=== PATIENT | male | born 1955 | race Caucasian/White ===

== ENCOUNTER → 2025-04-14 | Day surgery (SDC) | payer MEDICARE, BC ==
[~2025-04-14] VITALS: Ht 167.6 cm; Wt 62.0 kg
[~2025-04-14] MED LIST: COQ-10100 MG PO; CRESTOR40 MG PO; HYDROCHLOROTHIA25 MG PO; IBLOOD GLUCOSE TEST STRIP 1 EA TEST VI PRN; LACTATED RINGER'S 1,000 ML IV SCH; LIDOCAINE HCL 1% 5 ML SDV INJ ONE; LIDOCAINE HCL 2% 5 ML SDV ONE; MIDAZOLAM HCL 5 MG/5 ML VIAL IV PRN; VAZALORE81 MG PO; ZESTRIL40 MG PO; fentaNYL citrate 100 MCG/2 ML VIAL IV PRN; fentaNYL citrate 100 MCG/2 ML VIAL ONE
[2025-04-14 10:22] VITALS: BP 133/71
[2025-04-14 10:58] LABS: BASOPHILS 0.9 % (0.2-1.2); BASOPHILS, ABSOLUTE 0.08 K/uL (0.01-0.08); EOSINOPHILS 1.2 % (0.8-7.0); EOSINOPHILS, ABSOLUTE 0.10 K/uL (0.04-0.54); LYMPHOCYTES 13.3 % (21.8-53.1); MCH 33.0 PG (25.7-32.2); MCHC 35.2 g/dL (32.3-36.5); MCV 93.7 fL (79.0-92.2); MONOCYTES 8.1 % (5.3-12.2); MONOCYTES, ABSOLUTE 0.70 K/uL (0.30-0.82); NEUTROPHILS 76.0 % (34.0-67.9); NEUTROPHILS, ABSOLUTE 6.58 K/uL (1.78-5.38); RBC 3.79 M/uL (4.63-6.08); RETIC, PERCENT 1.93 % (0.51-1.81)
[2025-04-14 12:10] LABS: ERYTHROCYTE SEDIMENTATION RATE 29
--- NOTE | 2025-04-14 12:22 | NUR ---
04/14/25 1222 Keren Reyes 1215: BONE MARROW BX IS COMPLETE. THIS RN TAKES OVER FOR RECOVERY. PT IS ROLLED ONTO HIS BACK. 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
[2025-04-14 12:37] VITALS: BP 121/58
[2025-04-15 16:26] LABS: TESTOSTERONE BY IMMUNOASSAY 266 ng/dL (300-720)
[2025-04-17 19:34] LABS: ALPHA 1 GLOBULIN 0.26 g/dL (0.19-0.46); ALPHA 2 GLOBULIN 0.73 g/dL (0.48-1.05); BETA GLOBULIN 0.94 g/dL (0.48-1.10); GAMMA 0.81 g/dL (0.62-1.51); IMMUNOFIXATION REFLEX IFE Done (())
--- NOTE | 2025-04-19 15:00 | PATH ---
[facility] [address] [place], [place] [address] Signed SPECIMEN(S): A BONE MARROW - CORE, LEFT SPECIMEN(S): B BONE MARROW - ASPIRATION SPECIMEN(S): C FLOW CYTOMETRY, BM EDTA CLINICAL HISTORY: 69-year-old male NC/NC anemia, eval MDS versus myeloma DIAGNOSIS SUMMARY: Peripheral smear, review: - Normocytic normochromic anemia. - Mild absolute neutrophilia. Bone marrow core, clot with cell block, aspirate, touch preparation, biopsy: - Normocellular bone marrow (30%) with trilineage hematopoiesis. - No increase blasts or dysplasia. - Small polytypic plasma cell population. - Iron: Iron storage appears decreased. No ring sideroblasts identified. - Reticulin: Mild reticulin fibrosis, MF grade 1 of 3. - See diagnostic comment. DIAGNOSTIC COMMENT: In summary, the peripheral smear shows a mild normocytic, normochromic anemia and mild absolute neutrophilia. An occasional mildly hypogranular neutrophil is identified. No definitive dysplasia or increased blasts are identified. The bone marrow is normocellular with appropriate trilineage hematopoiesis. No increased blasts or definitive dysplasia are identified. No evidence of a plasma cell neoplasm are identified. Overall, the changes in the bone marrow are favored to be reactive in origin. However, to further rule out a myeloid neoplasm such as myelodysplastic syndrome (MDS) and a plasma cell neoplasm, additional studies (cytogenetics, MDS and multiple myeloma FISH analysis, and cliniq.ly MDS/CMML NGS profile) will be performed and added as an addendum when available. PERIPHERAL BLOOD: HEMOGRAM ([facility] 04/14/2025): WBC 8.65 K/uL, RBC 3.79 M/uL, HGB 12.5 g/dL, HCT 35.5%, MCV 93.7 fL, MCH 33.0 pg, MCHC 35.2 g/dL, RDW 12.9%, PLT 191 K/uL. DIFFERENTIAL: ABSOLUTE: Neutrophils 6.58, lymphocytes 1.15, monocytes 0.70, eosinophils 0.10, basophils 0.08. PERCENTAGES: Neutrophils 76.0%, lymphocytes 13.3%, monocytes 8.1%, eosinophils PATIENT NAME: TAIWO PABLO PATHOLOGY DATE OF : 57 REPORT #: [id number] PHYSICIAN: MANE PATHOLOGY PCP: NO PRIMARY CARE PHYSICIAN REPORT IS CONFIDENTIAL AND NOT TO BE RELEASED WITHOUT AUTHORIZATION [facility] [address] [place], [place] [address] Signed 1.2%, and basophils 0.9%. The peripheral smear shows a normocytic, normochromic anemia. There are scattered reticulocytes. Anisopoikilocytosis is minimal with occasional ovalocytes. There are no increased schistocytes. Platelets are normal in number and morphology. Neutrophils are slightly increased. No definitive dysplasia is identified. There are occasional mildly hypogranular forms. The lymphocytes present are predominantly small in size with condensed chromatin and scant cytoplasm. No increased blasts are identified. RAYMUNDO:cyn BONE MARROW: BONE MARROW ASPIRATE AND TOUCH PREP: The aspirate and touch imprint smear are suboptimal for evaluation. Rare spicules are present. The erythroid and myeloid elements are adequate in number and show normal maturation without dysplasia. Blasts are not increased. There is no abnormal lymphoid or plasma cell infiltrate. Megakaryocytes are rare. Due to the lack of cellularity on the aspirate, definitive evaluation of dysplasia is limited. BONE MARROW DIFFERENTIAL: Plasma cells: 1%, eosinophils 1%, lymphocytes 4%, myeloid lineage 84, nucleated red blood cells 10%. BONE MARROW CORE AND CLOT SECTION: The core and clot are adequate specimens. The marrow is normocellular for age with overall average cellularity of approximately 30%. Erythroid and myeloid elements are adequate in number and show normal maturation. M:E ratio is increased. Blasts are not increased. There is no abnormal lymphoid or plasma cell infiltrate. Megakaryocytes are rare. RESULTS - IMMUNOHISTOCEHMISTRY AND SPECIAL STAINS (PERFORMED ON BLOCK A1, UNLESS OTHERWISE SPECIFIED); - Iron (wet smear and clot): Iron storage appears decreased. No ring sideroblasts. - CD138: Highlights plasma cells, approximately 3-5% of total cellularity. - [place]/lambda in-situ hybridization: Highlights polytypic plasma cell population. - Reticulin: Mild reticulin fibrosis, MF grade 1 of 3. - CD34: Highlights blasts, not increased. - CD117: Highlights blasts and mast cells, not increased. - CD71: Highlights erythroid lineage. - Factor VIII: Highlights megakaryocytes. - Myeloperoxidase: Highlights myeloid lineage. JORDANA:cyn PATIENT NAME: TAIWO PABLO PATHOLOGY DATE OF : 57 REPORT #: [id number] PHYSICIAN: MANE PATHOLOGY PCP: NO PRIMARY CARE PHYSICIAN REPORT IS CONFIDENTIAL AND NOT TO BE RELEASED WITHOUT AUTHORIZATION [address] [address] Signed FLOW CYTOMETRY: Bone marrow aspirate, flow cytometry: - No increased blasts - No monoclonal B-cell population or aberrant T-cell population - Polytypic plasma cell population COMMENT: Clinical and morphologic correlation is required. FLOW CYTOMETRY ANALYSIS: FLOW DIFFERENTIAL (% Total CD45 vs. SSC gating): Myeloid 79%; Lymphoid 9%; Monocyte 2%; Dim CD45/Blast 0.9%; Plasma Cells 0.5%. Cell Count: 1.2 x 10*4/uL. POPULATION ANALYSIS: BLASTS: Analysis of the dim CD45 gate demonstrates 0.9% myeloblasts by CD34/CD117. LYMPHOID CELLS: The lymphocyte gate comprises 9% of total events and includes 78% T-cells with a CD4:CD8 ratio of 1.3:1 and normal mcfarlane T-cell antigen expression. 15% of lymphocytes are B-cells with a kappa:lambda ratio of 2.1:1. The remainders are NK cells. MYELOID CELLS: The myeloid population comprises 79% of the total events. No aberrant immature immunophenotypic expression is detected. MONOCYTES: The monocyte population comprises 2.0% of the total events. Monocytes are not increased. No aberrant immunophenotypic expression is detected. PLASMA CELLS: There is a clinical concern for myeloma per the requisition. For this reason, select additional antibodies are run to further characterize the plasma cells. 0.5% polytypic plasma cells are detected (n=233) expressing CD45 DIM-NEG, CD38 BR, CD138 MOD, CD19 MOD (subset neg) and CD56 MOD while negative for CD20, with a ckappa:clambda ratio of 1.3. Initial Antibodies Used: KAPPA, LAMBDA, CD20, CD10, CD19, CD23, CD38, CD16, CD56, CD8, CD5, CD2, CD4, CD7, CD3, CD14, CD33, CD13, HLADR, CD34, CD117, CD15, CD45. Additional Antibodies (necessary for further plasma cell analysis): ckappa, clambda, CD138. Total Antibodies Used: 26. KEW FINAL DIAGNOSIS OF FLOW CYTOMETRY PERFORMED BY: Kenyon Mallory DO, Apr 15 2025 4:20PM CYTOGENETICS: PATIENT NAME: TAIWO PABLO PATHOLOGY DATE OF : 57 REPORT #: [id number] PHYSICIAN: MANE PATHOLOGY PCP: NO PRIMARY CARE PHYSICIAN REPORT IS CONFIDENTIAL AND NOT TO BE RELEASED WITHOUT AUTHORIZATION [facility] [address] [place], [place] [address] Signed Performed, will be added as an addendum when available. FISH ANALYSIS: Performed, will be added as an addendum when available. MOLECULAR / PCR: Performed, will be added as an addendum when available. GROSS DESCRIPTION: Two specimens are received in two containers A. The specimen, labeled and designated "Cirilo, bone marrow-core," is received in formalin and consists of a singular portion of red-tapia bone measuring 1.1 cm in length by up to 0.2 cm in diameter. The specimen is submitted for decalcification in Immunocal prior to processing. Entirely submitted in cassette (A1). B. The specimen, labeled and designated "Cirilo, bone marrow-aspiration," is received in formalin and consists of a singular portion of clotted blood measuring 1.9 x 1.2 x 0.7 cm. The specimen is entirely submitted in cassette (B1). AB (under the direct supervision of a pathologist) The Gross Description was prepared using a voice recognition system. The report was reviewed for accuracy; however, sound-alike word errors, addition and/or deletions may occur. If there is any question about this report, please contact Client Services. ADDITIONAL NOTES: Immunohistochemical and/or in situ hybridization studies if performed in this case included appropriate positive controls that reacted as expected. This test was developed and its performance characteristics determined by [facility]. It has not been cleared or approved by the U.S. Food and Drug Administration. The FDA has determined that such clearance or approval is not necessary. This test is used for clinical purposes. It should not be regarded as investigational or for research. [facility] is certified under the Clinical Laboratory Improvement Amendments of 1988 (CLIA) as qualified to perform high complexity clinical laboratory testing. In this case, certain antibodies were performed by both immunohistochemistry and flow cytometry analysis because flow cytometry analysis did not fully explain all the light microscopic findings. Immunohistochemistry aided in the analysis. Both methods are deemed medically necessary in this case. PATIENT NAME: TAIWO PABLO PATHOLOGY DATE OF : 57 REPORT #: [id number] PHYSICIAN: MANE MONZON PCP: NO PRIMARY CARE PHYSICIAN REPORT IS CONFIDENTIAL AND NOT TO BE RELEASED WITHOUT AUTHORIZATION [facility] [address] [place] [id number] Signed This test was developed and its performance characteristics determined by [facility]. It has not been cleared or approved by the US Food and Drug Administration. The FDA does not require this test to go through premarket FDA review. This test is used for clinical purposes. It should not be regarded as investigational or for research. This laboratory is certified under the Clinical Laboratory Improvement Amendments (CLIA) as qualified to perform high complexity clinical laboratory testing. PERFORMING LABORATORY: The technical component of flow cytometry was performed by [facility], [facility], [facility] [place] [address] (CLIA#:� [id number]). Professional interpretation was performed by [facility], [facility], [address] [place] [id number] (CLIA#: [id number]). Technical component was performed by [facility], [address] [place] [id number] (CLIA# [id number]). [facility], [address] [place] [id number] (CLIA#: [id number]). IMAGES: [id number]: [id number]: [id number] Diagnostician: Kenyon Mallory DO Pathologist Electronically Signed 04/19/2025 Copies: ~ PATIENT NAME: TAIWO PABLO PATHOLOGY DATE OF : 57 REPORT #: [id number] PHYSICIAN: [facility] PCP: NO PRIMARY CARE PHYSICIAN REPORT IS CONFIDENTIAL AND NOT TO BE RELEASED WITHOUT AUTHORIZATION
== END ==
LOC: OPS 06:00 → DS 12:00 → OPS 12:00
PROVIDERS: ATTEND Specialist
PROC: 07DR3ZX Extraction of Iliac Bone Marrow, Percutaneous Approach, Diagnostic (ICD-10-PCS; principal; 2025-04-14 12:00)
DX: D64.9 Anemia, unspecified (principal); D70.9 Neutropenia, unspecified; E78.5 Hyperlipidemia, unspecified; I10 Essential (primary) hypertension; Z79.899 Other long term (current) drug therapy; Z79.82 Long term (current) use of aspirin; Z88.0 Allergy status to penicillin
CPT/HCPCS: 01112; 36415; 84403; 84443; 85025; 85045; 85651; 86140; 88184; 88185; 88305; 88311; 88313; 88341; 88342; 88364; 88365; J2003; J2405; J2704; J3010; J7121